=== PATIENT | male | born 1995 | race Hispanic/Latino ===

== ENCOUNTER 2021-07-20 13:06 | Emergency (ER) | payer MEDICAID, SELFPAY ==
[2021-07-20 13:15] VITALS: BP 131/65; PULSE 75; RESP 18; TEMP 36.4; O2SAT 99
--- NOTE | 2021-07-20 14:15 | ED.SKABFB ---
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 Is a small laceration on the right side. He did not lose consciousness. He has no nausea vomiting. No numbness tingling or weakness. He thinks his tetanus is up-to-date. Related Data Home Medications Medication Instructions Recorded Confirmed No Known Home Medications 07/20/21 07/20/21 Allergies Allergy/AdvReac Type Severity Reaction Status Date / Time No Known Drug Allergies Allergy Verified 07/20/21 13:18 Review of Systems Review of Systems Narrative: GENERAL: Denies chills,fever HEENT: Denies throat pain RESPIRATORY: Denies dyspnea, cough, wheezing CARDIOVASCULAR: Denies chest pain, palpitations GASTROINTESTINAL: Denies nausea, vomiting MUSCULOSKELETAL: Denies extremity pain, injury SKIN: 2 cm laceration CH NEUROLOGIC: Denies weakness, dizziness, headache, numbness 8 point review of systems is negative except for those stated above and HPI Patient History Social History Smoking Status: Former smoker Smoking Status: Former smoker Substance Use Type: does not use Exam Initial Vital Signs Initial Vital Signs: Vital Signs Temperature 97.5 F L 07/20/21 13:15 Pulse Rate 75 07/20/21 13:15 Respiratory Rate 18 07/20/21 13:15 Blood Pressure 131/65 07/20/21 13:15 Pulse Oximetry 99 07/20/21 13:15 GENERAL: Well-appearing, well-nourished and in no acute distress. CARDIOVASCULAR: peripheral pulses in tact, cap refill <2 sec RESPIRATORY: No respiratory distress, speaks in full sentences without difficulty EXTREMITIES: Normal range of motion, no clubbing or edema. Neurovascularly intact NEUROLOGICAL: Cranial nerves II through XII grossly intact. Normal gait and speech. SKIN: 2 cm laceration just lateral right on no eye involvement good skin approximation Procedures Laceration Repair Laceration 1: Side (If applicable): left Size (cm): 2 Description: linear Depth: simple, single layer Local Anesthetic: lidocaine 1% Amount of anesthesia used (mL): 2 Pre-repair: wound explored, irrigated extensively and deep structures intact Skin layer closed with: nylon Size (cm): 4-0 Number of sutures: 2 Technique: simple, interrupted Course Orders Ordered: Discontinued Medications Diphtheria/Tetanus/Acell Pertussis (Tet,Diph,Pertuss(Acell),Vac/Pf 0.5 Ml Syringe) 0.5 ml IM .ONCE ONE Stop: 07/20/21 14:15 Last Admin: 07/20/21 14:25 Dose: 0.5 ml Documented by: YULIA Lidocaine HCl (Lidocaine 1% (Pf)) 2 ml SUBCUT NOW ONE Stop: 07/20/21 14:15 Last Admin: 07/20/21 14:25 Dose: 2 ml Documented by: YULIA Vital Signs Vital signs: Vital Signs - 8 hr 07/20/21 13:15 Temperature 97.5 F L Pulse Rate 75 Respiratory Rate 18 Blood Pressure 131/65 Pulse Oximetry 99 Discharge Plan Departure Patient Disposition: Home Clinical Impression: Laceration Instructions: DI for Laceration Repair -- Simple Activity Restrictions/Additional Instructions: Have sutures removed in 5-7 days, walk-in clinic, urgent care, primary care provider, emergency department Wash with soap and water Put antibiotic ointment on 1 to 2 times a day Return to ER if redness swelling or drainage or pain or any new symptoms follow up with Primary care provider in 2-3 days Prescriptions: No Action No Known Home Medications 0RF
[2021-07-20] MEDS: LIDOCAINE 1% (PF) 2 ML SUBCUT (14:25)
[2021-07-20] MEDS: TET,DIPH,PERTUSS(ACELL),VAC/PF 0.5 ML SYRINGE IM (14:25)
== END 2021-07-20 15:11 | disposition home or self-care (01) ==
PROVIDERS: Emergency Provider Emergency Medicine
DX: S01.81XA Laceration without foreign body of other part of head, initial encounter (principal); W51.XXXA Accidental striking against or bumped into by another person, initial encounter; Y93.67 Activity, basketball; Z23 Encounter for immunization
CPT/HCPCS: 12011; 90471; 99283; 90715